=== PATIENT | male | born 1950 | race Two or more races ===

== ENCOUNTER 2023-02-16 08:34 | Emergency (ER) | payer OTHER ==
[~2023-02-16] VITALS: Ht 182.9 cm; Wt 100.0 kg
[2023-02-16 08:38] VITALS: BP 164/102
[2023-02-16] MEDS ORDERED: TETANUS, DIPHTHERIA, PERTUSSIS VAC/PF 0.5ML (>10YR OLD) IM ONE (12:00)
[2023-02-16] MEDS ORDERED: LIDOCAINE HCL 1% 20ML VIAL (Pyxis) INJ INFIL ONE (12:00)
[2023-02-16] MEDS ORDERED: CEPH250C2 MT (16:03)
[2023-02-16] MEDS ORDERED: BACITRACIN ZINC OINT UDPKT TOP ONE (16:15)
== END 2023-02-16 16:34 | disposition home or self-care (01) ==
LOC: ER 08:34
DX: S81.812A Laceration without foreign body, left lower leg, initial encounter (principal); G89.11 Acute pain due to trauma; E11.9 Type 2 diabetes mellitus without complications; I10 Essential (primary) hypertension; I48.91 Unspecified atrial fibrillation; Z88.1 Allergy status to other antibiotic agents; X58.XXXA Exposure to other specified factors, initial encounter; Y93.89 Activity, other specified; Y92.89 Other specified places as the place of occurrence of the external cause; Y99.8 Other external cause status
CPT/HCPCS: 12005; 73590; 90471; 90715; 99283; J3490; Z7610